=== PATIENT | female | born 2000 | race Caucasian/White ===

== ENCOUNTER 2025-06-03 17:11 | Emergency (ER) | payer BC, SELFPAY ==
[2025-06-03 17:13] VITALS: BP 114/68
--- NOTE | 2025-06-03 20:50 | ED.GENMED ---
History of Present Illness
General
Chief Complaint: Musculo-Skeletal Complaint
Source: patient
Time Seen by Provider: 06/03/25 20:29
History of Present Illness
History of Present Illness:
25-year-old female presenting to the emergency department for evaluation of right ankle injury sustained while playing at a [employer] softball game, states she was running when she twisted her right ankle now with difficulty ambulating, pain and
swelling to the right lateral ankle. She notes history of previous surgical repair with plates and screws, subsequently having the plates and screws removed, this was done by [facility] orthopedics. No other injuries were sustained.
Past History
Past History
ED Past Medical History: Psychiatric
ED Past Surgical History: Orthopedic
Social History
Tobacco: Non-smoker
Alcohol: Occasional
Drug: None
Personal: Single
Living: with family
Review of Systems
Review of Systems
All Other Systems: ROS reviewed and negative except as documented in HPI and ROS
Phy Exam
Physical Exam
Physical Exam:
GENERAL: Alert , in no apparent distress
EYE: conjunctiva clear
Head: Normocephalic atraumatic
NECK: Supple,
ENT: mmm.
LUNGS: no acute respiratory distress
NEUROLOGICAL: Alert and oriented
SKIN: Warm and dry, skin intact.
MUSCULOSKELETAL: Right lower extremity: There is significant soft tissue swelling with ecchymosis laterally around the ankle. Tenderness directly over this area. No tenderness at the base of the fifth metatarsal, no proximal tib-fib tenderness.
There is easily palpable pedal and tibial pulses. Cap refill less than 2 seconds. Calcaneal tendon without laxity and is intact.
PSYCH: Normal and appropriate interaction.
Scores
Heart Failure Risk
Heart Failure Risk Score: Not Applicable
Heart Score for Chest Pain Patients
STEMI patient?: Not applicable
Withdrawal Assessment of Alcohol
Withdrawal Assessment Completed?: Not applicable
Course
Orders/Labs/Results
Orders:
Orders
06/03/25 17:16
CR Ankle - Right Min 3 Views * Urgent
Comment:
Reason For Exam: rolled R ankle
06/03/25 20:51
Crutches-Treatment ONCE
Vital Signs
Initial and Last Documented VS:
Initial Vital Signs
Temp Pulse Resp BP Pulse Ox
98.1 F 84 18 114/68 98
06/03/25 17:13 06/03/25 17:13 06/03/25 17:13 06/03/25 17:13 06/03/25 17:13
Last Documented Vital Signs
Temp Pulse Resp BP Pulse Ox
98.1 F 84 18 114/68 98
06/03/25 17:13 06/03/25 17:13 06/03/25 17:13 06/03/25 17:13 06/03/25 20:51
Procedures
Splinting/Sling Placement
Right Lower Leg:
Procedure completed by: Maciel
Pre-splint extermity exam: neurovascular intact
Type of splint: sugar-tong and posterior short leg
Splint material: other (3 inch Ortho-Glass)
Splint checked by provider?: Yes
Normal distal neurovascular exam?: Yes
MDM/Problems Addressed
Differential Diagnosis Includes:
Sprain
Fracture
Contusion
Tendon injury
MDM/Problems Addressed:
25-year-old female presenting to the ER for evaluation of ankle injury when she inverted her ankle, significant soft tissue swelling with inability to ambulate. X-ray ordered from triage shows a lateral malleolus fracture and suspected avulsion
injury off of the medial malleolus. Patient was placed in splint as above. She will follow-up with her orthopedic team at [facility] as she has previously. RICE recommendations discussed. Otherwise stable for discharge. Patient encouraged to be
nonweightbearing until she follows up with orthopedics.
*Radiology
Radiology exam reviewed: preliminary read by ED provider (Lateral malleolus fracture) and radiology read reviewed
*Pulse Oximetry
SaO2: 98
Oxygen Mode of Delivery: Room air
Patient hypoxic: no
*Critical Care Note
Total Time (30-74mins, 75-104mins- exclusive of procedures): Not Applicable
ED Attending Note
-
Portions of this chart may have been created with voice recognition software.� Occasional wrong word or��sound alike� substitutions may have occurred due to the inherent limitations of voice recognition software.
Discharge Plan
Departure
Patient Disposition: Home (Routine Discharge)
Date of Disposition: 06/03/25
Time of Disposition: 20:51
Patient with high blood pressure during this ER visit?: No
Discharge Problem:
Fracture of lateral malleolus of right ankle
Instructions: Ankle Fracture (DC)
Referrals:
Mira Monroy MD [Non-Admitting Privileges]
Daquan Noel MD [Active, Orthopedics]
Interventions
Interventions:
*Risk Screen - Suicide Last Done: 06/03/25 17:13
*General Assessment Last Done: 06/03/25 17:13
*Neglect/Abuse Screening Last Done: 06/03/25 20:43
*ED- Fall Risk Assessment Last Done: 06/03/25 21:46
*ED COVID-19 Vaccine History Last Done: 06/03/25 17:13
*Nursing Disposition Last Done: 06/03/25 21:46
ED-Musculoskeletal Assessment Last Done: 06/03/25 21:43
Discharge Date and Time
Discharge Date/Time: 06/03/25 21:46
Print Language: SLOVENIAN
== END 2025-06-03 21:46 | disposition home or self-care (01) ==
LOC: EMR 17:11
PROVIDERS: EMERGENCY PHYSICIAN Emergency Medicine; FAMILY PHYSICIAN Internal Medicine
DX: S82.61XA Displaced fracture of lateral malleolus of right fibula, initial encounter for closed fracture (principal); S90.01XA Contusion of right ankle, initial encounter; X50.1XXA Overexertion from prolonged static or awkward postures, initial encounter; Y93.64 Activity, baseball; Y92.89 Other specified places as the place of occurrence of the external cause
CPT/HCPCS: 99283; 29515; 73610